=== PATIENT | female | born 1975 | race Two or more races ===

== ENCOUNTER 2020-05-11 12:22 | Emergency (ER) | payer MEDICAID, OTHER ==
[~2020-05-11] VITALS: Ht 162.6 cm; Wt 108.9 kg
[2020-05-11 14:46] VITALS: BP 128/90
== END 2020-05-11 15:02 | disposition home or self-care (01) ==
LOC: ER 12:22
DX: U07.1 COVID-19 (principal); J06.9 Acute upper respiratory infection, unspecified
CPT/HCPCS: 71045; 87635